=== PATIENT | female | born 1960 | race Caucasian/White ===

== ENCOUNTER → 2019-02-28 | Outpatient (REF) | payer OTHER ==
[2019-03-06 14:09] LABS: HPV HYBRID CAPTURE II Negative (Negative)
== END ==
LOC: M LAB LCGH 11:30
PROVIDERS: ATTEND Family Medicine
DX: Z12.4 Encounter for screening for malignant neoplasm of cervix (principal); N95.2 Postmenopausal atrophic vaginitis
CPT/HCPCS: 87624; G0123

== ENCOUNTER → 2020-05-15 | Outpatient (CLI) | payer OTHER ==
[~2020-05-15] MED LIST: ACET-683 PO; ALEV220T22 PO; ASHWAGANDHA PO; BUPR15TA PO; CALC-234 PO; CALC1TAB74 PO; CALCCAP4 PO; CALCCHW19 PO; CYTO5TAB8 PO; LEVO75TA4 PO; MULTCAP PO; OMEGCAP4 PO; PERC5TAB12 PO; ST JOHNS WORT PO; VITA500T41 PO; VITACAP8 PO; [UNRECOGNIZED DRUG - OTHER] PO
== END ==
LOC: M LABSMTC 12:50
PROVIDERS: ATTEND Anesthesiology
DX: Z01.812 Encounter for preprocedural laboratory examination (principal); Z11.59 Encounter for screening for other viral diseases

== ENCOUNTER 2020-05-20 08:30 | Inpatient (IN) | payer OTHER ==
[~2020-05-20] VITALS: Ht 160 cm; Wt 56.7 kg
[~2020-05-20 08:30] MED LIST changes: -ACET-683 PO; +ACETAMINOPHEN 1000MG 100ML IV BTL (OFIRMEV) (J0131 PER 10MG) As Ordered ONE; -ALEV220T22 PO; -ASHWAGANDHA PO; +BACITRACIN PWD 50,000 UNITS VIAL As Ordered ONE; +BUPIVACAINE/EPIN 0.25% 30 ML VIAL As Ordered ONE; -BUPR15TA PO; -CALC-234 PO; -CALC1TAB74 PO; -CALCCAP4 PO; -CALCCHW19 PO; -CYTO5TAB8 PO; -LEVO75TA4 PO; +LIDOCAINE 2% 100MG/5ML SDV (FOR ANES.) As Ordered ONE; +MIDAZOLAM INJ 2MG/2ML VIAL (J2250 PER 1MG) As Ordered ONE; -MULTCAP PO; -OMEGCAP4 PO; +ONDANSETRON 4MG/2ML VIAL As Ordered ONE; -PERC5TAB12 PO; +REMIFENTANIL 1MG 3ML VIAL As Ordered ONE; +ROCURONIUM BROMIDE 50 MG/5 ML VIAL As Ordered ONE; -ST JOHNS WORT PO; +THROMBIN SOLN 20,000 UNITS KIT As Ordered ONE; +VANCOMYCIN 500MG/10ML VIAL As Ordered ONE; -VITA500T41 PO; -VITACAP8 PO; -[UNRECOGNIZED DRUG - OTHER] PO; +dexameTHASONE 4 MG/ML 1ML VIAL (J1100 PER 1MG) As Ordered ONE; +fentaNYL 250 MCG/5 ML INJECTION (J3010) As Ordered ONE; +propofoL 200 MG/20 ML VIAL As Ordered ONE
[2020-05-20] MEDS ORDERED: **UNRESOLVED NON-FORMULARY MED ORDER XX SCH (09:00)
[2020-05-20] MEDS ORDERED: BUPIVACAINE HCL 0.5% 10ML VIAL As Ordered ONE (09:06)
[2020-05-20] MEDS ORDERED: BUPIVACAINE LIPOSOME/PF 1.3% 20ML VIAL (13.3MG/ML)(EXPAREL)(C9290 PER1MG) As Ordered ONE (09:06)
[2020-05-20] MEDS ORDERED: PERCOCET 5MG/325MG TAB As Ordered ONE (09:24)
[2020-05-20] MEDS ORDERED: ceFAZolin 1GM VIAL (J0690 PER 500MG) As Ordered ONE (09:25)
[2020-05-20] MEDS ORDERED: ceFAZolin SOD 1 GM in D5W MINI-BAG PLUS 50 ML IV ONE (10:00)
[2020-05-20] MEDS ORDERED: GABAPENTIN 300 MG CAP PO ONE (10:00)
[2020-05-20] MEDS ORDERED: PERCOCET 5MG/325MG TAB PO ONE (10:00)
[2020-05-20] MEDS ORDERED: LR 1,000 ML IV SCH ×3 (10:00→15:15)
[2020-05-20] MEDS ORDERED: BUPR15TA PO (10:25)
[2020-05-20] MEDS ORDERED: LEVO75TA4 PO (10:25)
[2020-05-20] MEDS ORDERED: CYTO5TAB8 PO (10:25)
[2020-05-20] MEDS ORDERED: ACET-683 PO (10:25)
[2020-05-20] MEDS ORDERED: OMEGCAP4 PO (10:25)
[2020-05-20] MEDS ORDERED: CALCCHW19 PO (10:25)
[2020-05-20] MEDS ORDERED: VITACAP8 PO (10:25)
[2020-05-20] MEDS ORDERED: VITA500T41 PO (10:25)
[2020-05-20] MEDS ORDERED: MULTCAP PO (10:26)
[2020-05-20] MEDS ORDERED: ST JOHNS WORT PO (10:29)
[2020-05-20] MEDS ORDERED: ASHWAGANDHA PO (10:29)
[2020-05-20] MEDS ORDERED: ePHEDrine SULFATE 25 MG/5 ML(5MG/ML) SYRINGE As Ordered ONE ×2 (10:39→12:21)
[2020-05-20] MEDS ORDERED: EPINEPHrine INJ 1 MG/ML 1ML AMP As Ordered ONE (10:39)
[2020-05-20] MEDS ORDERED: TRANEXAMIC ACID 100 MG/ML 10ML VIAL As Ordered ONE (10:39)
[2020-05-20] MEDS ORDERED: GLYCOPYRROLATE INJ 0.2 MG/ML 2 ML VIAL As Ordered ONE (11:01)
[2020-05-20] MEDS ORDERED: ROCURONIUM BROMIDE 50 MG/5 ML VIAL As Ordered ONE (12:49)
[2020-05-20] MEDS ORDERED: REMIFENTANIL 1MG 3ML VIAL As Ordered ONE (13:10)
[2020-05-20] MEDS ORDERED: SUGAMMADEX SODIUM 500 MG/5 ML VIAL (BRIDION) As Ordered ONE (13:20)
[2020-05-20] MEDS ORDERED: HYDROMORPHONE HCL 0.5 MG/ 0.5 ML SYRINGE (J1170 PER 1) IV PRN (15:00)
[2020-05-20] MEDS ORDERED: PROMETHAZINE INJ 25 MG/ML VIAL (J2550) IV PRN (15:15)
[2020-05-20] MEDS ORDERED: fentaNYL 100 MCG/2 ML INJECTION (J3010) IV PRN (15:15)
[2020-05-20] MEDS ORDERED: PERCOCET 5MG/325MG TAB PO PRN ×2 (15:15)
[2020-05-20] MEDS ORDERED: ONDANSETRON 4MG/2ML VIAL IV PRN (15:15)
[2020-05-20] MEDS ORDERED: METOCLOPRAMIDE INJ 10MG/2ML VIAL (J2765 PER 1) IV PRN (15:15)
[2020-05-20 15:45] VITALS: BP 135/70
[2020-05-20 16:15] VITALS: BP 133/71
[2020-05-20] MEDS ORDERED: CALC1TAB74 PO (17:08)
[2020-05-20] MEDS ORDERED: [UNRECOGNIZED DRUG - OTHER] PO (17:08)
[2020-05-20] MEDS ORDERED: ALEV220T22 PO (17:08)
[2020-05-20] MEDS ORDERED: CALCCAP4 PO (17:08)
[2020-05-20] MEDS ORDERED: CALC-234 PO (17:08)
[2020-05-20 17:15] VITALS: BP 124/63
[2020-05-20] MEDS: ceFAZolin SOD 1 GM in D5W MINI-BAG PLUS 50 ML IV SCH ×2 (17:18→22:35)
[2020-05-20 18:15] VITALS: BP 127/63
[2020-05-20 19:03] VITALS: BP 124/70
[2020-05-20 20:00] VITALS: BP 129/71
[2020-05-20] MEDS: GABAPENTIN 100 MG CAP PO SCH (20:36)
[2020-05-20] MEDS ORDERED: buPROPion **SR TABLET** (ZYBAN) 150MG PO SCH (21:00)
[2020-05-20] MEDS: PERCOCET 5MG/325MG TAB PO PRN (22:34)
[2020-05-21 02:00] VITALS: BP 114/52
[2020-05-21] MEDS: PERCOCET 5MG/325MG TAB PO PRN (05:53)
[2020-05-21 06:00] VITALS: BP 112/53
[2020-05-21] MEDS ORDERED: LEVOTHYROXINE 75MCG TABLET (0.075MG) PO SCH (06:00)
[2020-05-21] MEDS ORDERED: PERC5TAB12 PO (06:30)
[2020-05-21] MEDS ORDERED: METAMUCIL (PSYLLIUM) PACKET PO SCH (09:00)
[2020-05-21] MEDS ORDERED: buPROPion **SR TABLET** (ZYBAN) 150MG PO SCH (09:00)
[2020-05-21] MEDS: GABAPENTIN 100 MG CAP PO SCH (09:02)
--- NOTE | 2020-05-27 16:40 | REP ---
PORTABLE LUMBAR SPINE: SINGLE VIEW HISTORY: Intraoperative imaging. FINDINGS: Cross-table lateral portable radiograph obtained at 11:26 a.m. demonstrates a metallic probe at the dorsal aspect of the spinal canal at the L4-5 level. There is a mild L4-5 spondylolisthesis evident. Degenerative disc narrowing is seen at 4-5 and 5-1. MTDD
--- NOTE | 2020-06-08 13:47 | RO ---
DATE OF OPERATION: 05/20/2020. PREOPERATIVE DIAGNOSIS: Lumbar spinal stenosis L3-4 and L4-5 with spondylolisthesis L3-4, L4-5. POSTOPERATIVE DIAGNOSIS: Lumbar spinal stenosis L3-4 and L4-5 with spondylolisthesis L3-4, L4-5. PROCEDURES: Left unilateral laminectomy L3 for decompression of the thecal sac exiting and traversing nerve roots, left unilateral laminectomy L4 for decompression of the thecal sac exiting and traversing nerve roots, left unilateral laminectomy L5 for decompression of the exiting nerve root, arthrodesis L3-4 posterior intertransverse technique, arthrodesis L4-5 posterior intertransverse technique additional level, harvest and placement of right iliac crest, morselized bone graft for spine surgery, harvest and placement of local autograft for spine surgery. SURGEON: Dewayne Turner M.D. WOOL SACKER: SOSA Woodward ANESTHESIA: General. ESTIMATED BLOOD LOSS: Less than 60 mL, replaced with crystalloid. COMPLICATIONS: None. COMPONENTS USED: Include bone graft as above and 15 cc demineralized Bone Matrix putty and 30 cc crushed cancellous allograft. INDICATIONS: Neurogenic claudication affecting the left more than the right lower extremity with radiographic and MRI evidence of above diagnosis. Patient has elected for operative intervention. Consent reviewed in detail including a qian discussion of the pathology involved, the procedure with both alternatives including doing nothing and risks including but not limited to pain, failure, infection, bleeding, blood loss, incomplete relief of symptoms, need for additional surgery, and other issues. The patient agrees to proceed. DESCRIPTION OF OPERATION: Identified in the holding area, site and side verified. She was brought to the operating room. Once anesthesia was administered, we then positioned the patient on the Olu frame for exposure of the lumbar spine. Axillary rolls were utilized, knees were slightly flexed. Once I and the help desk engineer were comfortable with the patient's position, we then began the surgical procedure. A timeout was accomplished. She was prepped and draped in the usual fashion. The line of the incision was infiltrated with 0.25% Marcaine with epinephrine based on palpitation of bony landmarks. I stood initially on the patient's right, but did alternate with my quality assistant, Mr. Cormier, throughout the course of the case. The incision was infiltrated with 0.25% Marcaine with epinephrine made with a 10 blade knife, developed down through the skin and subcuticular tissues to the posterior lumbar fascia. The posterior lumbar fascia was reflected off of the spinous processes of L3, 4 and 5. Dissection continued along the left lamina of L3-4 and 4-5 facet complexes. A divot was drilled in the posterior L4 lamina. I placed the Whiteside Stanton in the divot. We obtained a cross-table lateral x-ray to verify a level. Next, once this accomplished, further dissection out over the transverse processes of 3, 4 and 5 was accomplished on the left. Then, I switched sides with Mr. Cormier and opened the paraspinal musculature to the right side over the facet complex and exposed the transverse processes of 3, 4 and 5 on the right side. Next, once this was accomplished, the operating microscope was thoroughly draped and brought in. Once this was in place, Mr. Cormier looked through oculars on the right side. I looked through oculars on the left side. I utilized the high-speed bur to implement the left unilateral laminectomy beginning at L4 traversing superiorly through the lamina 3 to the bare area of 3, and then working inferiorly through the bare area of L5. Next, I undercut the spinous processes at 3, 4 and 5 with the bur. Next, I elevated ligamentum flavum using curettes and removed it using pituitaries, curettes and Kerrison punches. Next, once this was accomplished, I decompressed the left lateral recess and I am using #2 Kerrisons as well as the curved curettes at L3, 4 and 5. Next, the table was then angled so that I could better access the contralateral right side. I then utilized curved Sirisha curette to further clear lateral recess on the right side as well as the #2 Kerrisons looking over the horizon using the operating microscope. Next, once this was accomplished, I irrigated including irrigation with TXA solution. There was no active bleeding. There was no CSF leak. Next, once this was accomplished, we then exposed the right posterior superior iliac spine, and opened with Bovie cautery. I removed posterior sacroiliac bone using Leksells, followed by use of curettes to remove morselized bone grafts from the right posterior superior iliac crest. Next, once this was accomplished, I irrigated including irrigation with TXA, placed dry Gelfoam and closed that wound using interrupted stitch through a separate fascial incision. Next, once this accomplished, Mr. Cormier exposed the transverse processes on the patient's right using the retractor. I decorticated using the Leksells as well as the high-speed bur and I placed morselized autograft followed by local autograft mixed with allograft and demineralized Bone Matrix putty over the transverse processes at 3, 4 and 5 as well as the facet complexes of 3-4 and 4-5 and to some degree the lamina there. Next, once that was accomplished, we switched sides. Mr. Cormier exposed the contralateral transverse processes at 3, 4 and 5, and I placed the remaining iliac crest local and donor bone there along with the DBX. Next, once this was accomplished, I did sprinkle into the wound with Vancomycin crystals. Next, we removed retractors. No active bleeding. The posterior lumbar fascia was reapproximated with interrupted stitch and the dermis with interrupted stitch. Prineo dressing was applied to the skin. The patient was extubated, and moved to the recovery room in good condition. For further details, please refer to the medical record. Mr. Cormier was present and participated in the entire case. I did contact the patient's via telephone to notify him that his wifes surgery was complete. JASON
== END 2020-05-21 14:15 | disposition home or self-care (01) | DRG 455 ==
LOC: M OR 09:02 → M MS5PR 15:44
PROVIDERS: ADMIT Orthopaedic Surgery; ATTEND Orthopaedic Surgery
PROC: 0SG00AJ Fusion of Lumbar Vertebral Joint with Interbody Fusion Device, Posterior Approach, Anterior Column, Open Approach (ICD-10-PCS; 2020-05-20)
PROC: 0QB30ZZ Excision of Left Pelvic Bone, Open Approach (ICD-10-PCS; 2020-05-20)
PROC: 0SG0071 Fusion of Lumbar Vertebral Joint with Autologous Tissue Substitute, Posterior Approach, Posterior Column, Open Approach (ICD-10-PCS; principal; 2020-05-20 11:45)
DX: M48.061 Spinal stenosis, lumbar region without neurogenic claudication (principal)